=== PATIENT | male | born 1990 | race Hispanic/Latino ===

== ENCOUNTER 2018-03-31 06:24 | Emergency (ER) | payer BC ==
[2018-03-31 06:25] VITALS: BMI 18.2
[2018-03-31 06:40] VITALS: O2SAT 98
--- NOTE | 2018-03-31 07:42 | ED PDOC ---
Arrival/HPI - General Chief Complaint: Alcohol Ingestion Time Seen by Provider: 03/31/18 07:14 Historian: Patient - History of Present Illness Narrative History of Present Illness (Text): 03/31/18 07:30 28 year old male, whose PMH includes depression, anxiety, and substance use of cocaine, who presents to the emergency department via EMS s/p being found intoxicated. patient admits to ETOH use since prior to arrival. Patient denies other substance use, fall, trauma, vomiting, chest pain, shortness of breath, or other complaints. Time/Duration: Prior to Arrival Symptom Course: Unchanged Past Medical History - Provider Review Nursing Documentation Reviewed: Yes - Infectious Disease Hx of Infectious Diseases: None - Tetanus Immunization Tetanus Immunization: Unknown - Past Medical History Past Medical History: No Previous - Cardiac Hx Cardiac Disorders: No - Pulmonary Hx Respiratory Disorders: No - Neurological Hx Neurological Disorder: No - HEENT Hx HEENT Disorder: No - Renal Hx Renal Disorder: No - Endocrine/Metabolic Hx Endocrine Disorders: No - Hematological/Oncological Hx Blood Disorders: No - Integumentary Hx Dermatological Disorder: No - Musculoskeletal/Rheumatological Hx Musculoskeletal Disorders: No - Gastrointestinal Hx Gastrointestinal Disorders: No - Genitourinary/Gynecological Hx Genitourinary Disorders: No - Psychiatric Hx Anxiety: Yes Hx Depression: Yes Hx Substance Use: Yes (cocaine) - Past Surgical History Past Surgical History: No Previous - Anesthesia Hx Anesthesia: No - Suicidal Assessment Feels Threatened In Home Enviroment: No Family/Social History - Physician Review Nursing Documentation Reviewed: Yes Family/Social History: Unknown Family HX Smoking Status: Heavy Smoker > 10 Cigarettes Daily Hx Alcohol Use: Yes Frequency of alcohol use: Daily Amount per day: 24 Hx Substance Use: Yes (cocaine) Substance used: COCAINE Hx Substance Use Treatment: No Allergies/Home Meds Allergies/Adverse Reactions: Allergies divalproex sodium [From Depakote] Allergy (Mild, Verified 03/31/18 06:37) RASH haloperidol [From Haldol] Allergy (Mild, Verified 03/31/18 06:37) RASH risperidone [From Risperdal] Allergy (Verified 03/31/18 06:37) RASH egg plant Allergy (Uncoded 03/31/18 06:37) SWELLING seafood Allergy (Uncoded 03/31/18 06:37) SWELLING Home Medications: Home Meds Medication Instructions Recorded Confirmed Unobtainable 03/31/18 03/31/18 Review of Systems - Physician Review All systems were reviewed & negative as marked: Yes - Review of Systems Systems not reviewed;Unavailable: Intoxicated Respiratory: absent: SOB Cardiovascular: absent: Chest Pain Physical Exam - Physical Exam Narrative Physical Exam (Text): 03/31/18 Gen: VS reviewed, alert, well developed, well nourished, nontoxic, mild distress. ENT: normal pharynx. Eye: EOMI, PERRL. Neck: no JVD, supple, no adenopathy. CV: regular rate, regular rhythm, no rubs, no murmur, no gallops, S1, S2, pulses equal and strong. Pulm: no distress, clear to auscultation, no wheeze, no rhonchi, breath sounds equal, no rales. Abd: soft, nontender, no guarding, no rebound, no rigidity, normal bowel sounds. Ext: no edema. Skin: good color, no rash, no cyanosis. Psych: responds appropriately to questions, normal affect. Neuro: (+) intoxicated oriented x 3, CN2-12 intact grossly, motor intact, sensation intact. Vital Signs Reviewed: Yes Vital Signs Temp Pulse Resp BP Pulse Ox 03/31/18 11:22 97.5 F L 67 18 104/59 L 98 03/31/18 06:39 96.8 F L 66 17 109/60 98 Temperature: Hypothermic Blood Pressure: Normal Pulse: Regular Respiratory Rate: Normal Appearance: Positive for: Well-Appearing, Non-Toxic, Comfortable Pain Distress: None Mental Status: Positive for: Alert and Oriented X 3 Medical Decision Making ED Course and Treatment: 03/31/18 Impression: 28 year old male with limited HPI due to intoxication. denies other substance use. Differential Diagnosis included but are not limited to: intoxication Plan: -- Reassess and disposition Progress Notes: 03/31/18 08:16 patient seen for alcohol intoxication, no physical evidence of trauma, will observe to clinical sobriety 03/31/18 11:00 re-eval, patient more awake and alert, states feels more sober, will feed as pt is hungry and begin prep for discharge 03/31/18 12:04 patient awake and alert, clear speech and steady gait, tolerate po, stable for dc - Scribe Statement The provider has reviewed the documentation as recorded by the Scribe Shawna Gila Provider Patie Attestation: All medical record entries made by the Yang were at my direction and personally dictated by me. I have reviewed the chart and agree that the record accurately reflects my personal performance of the history, physical exam, medical decision making, and the department course for this patient. I have also personally directed, reviewed, and agree with the discharge instructions and disposition. Disposition/Present on Arrival - Present on Arrival Any Indicators Present on Arrival: No History of DVT/PE: No History of Uncontrolled Diabetes: No Urinary Catheter: No History of Decub. Ulcer: No History Surgical Site Infection Following: None - Disposition Have Diagnosis and Disposition been Completed?: Yes Diagnosis: Alcohol intoxication Disposition: HOME/ ROUTINE Disposition Time: 12:05 Patient Plan: Discharge Condition: GOOD Discharge Instructions (ExitCare): Alcohol Abuse and Alcoholism (DC) Print Language: CROATIAN Referrals: [facility], [Non-Staff] - Follow up with primary Forms: Nvest (Andorran)
[2018-03-31 11:23] VITALS: BP 104/59
[2018-03-31 12:31] VITALS: PULSE 69; RESP 19; TEMP 97.9
== END 2018-03-31 12:31 | disposition home or self-care (01) ==
LOC: ED 06:24
DX: F10.129 Alcohol abuse with intoxication, unspecified (principal)